=== PATIENT | male | born 1940 | race Caucasian/White ===

== ENCOUNTER 2017-08-13 13:57 | Emergency (ER) | payer SELFPAY ==
[~2017-08-13] VITALS: Ht 177.8 cm; Wt 108.0 kg
[2017-08-13 14:25] VITALS: Ht 177.8 cm; Wt 108.0 kg
--- NOTE | 2017-08-13 16:41 | ERD ---
ER Documentation Chief Complaint Chief Complaint LT GROIN PIAN X 20 DAYS HPI 76-year-old male, previously healthy, visiting from [place], presents to emergency department with his , complaining of 2 months with progressive left inguinal pain. The pain is described as sharp, intermittent, worsened by abduction of the left hip, rated 6/10. No history of trauma. No current treatment. Denies dysuria, abdominal pain, fever, chills, hematuria. History provided by patient. ROS A 12-point review of systems was performed and negative other than presented in the history of present illness. SYSTEMIC symptoms: no fever, chills, no night sweats, no weight loss EYE symptoms: No blurred vision, no eye discharge OTOLARYNGEAL symptoms: No hearing loss. No ear pain, no sore throat CARDIOVASCULAR symptoms: No chest pain or discomfort, no palpitations. PULMONARY symptoms: No dyspnea, no cough, no wheezing. GASTROINTESTINAL symptoms: No abdominal pain, no nausea, no vomiting, no diarrhea MUSCULOSKELETAL symptoms: Per HPI. NEUROLOGY symptoms: No confusion, no syncope, no numbness or tingling. SKIN: Per HPI Medications Home Meds Active Scripts Hydrocodone/Acetaminophen ([place] 5-325 Tablet) 1 Each Tablet, 1 TAB PO Q8 Y for PAIN for 3 Days, #10 TAB Prov:GRIFFIN NAYLOR MD 08/13/17 Clotrimazole* (Clotrimazole* AF) 1% - 30 Gm Cream.gm., 1 APPLIC TOP BID for 7 Days, TUB Prov:GRIFFIN NAYLOR MD 08/13/17 PMhx/Soc History of Surgery: Yes (HERNIA, KIDNEY STONE) Anesthesia Reaction: No Hx Neurological Disorder: No Hx Respiratory Disorders: No Hx Cardiac Disorders: Yes (HTN) Hx Psychiatric Problems: No Hx Miscellaneous Medical Probl: Yes (KIDNEY STONES) Hx Alcohol Use: No Hx Substance Use: No Hx Tobacco Use: Yes Smoking Status: Current some day smoker Physical Exam Vitals Vital Signs Date Time Temp Pulse Resp B/P Pulse Ox O2 Delivery O2 Flow Rate FiO2 08/13/17 14:25 98.2 92 18 146/98 97 Physical Exam Patient is in no acute distress, vital signs stable. Alert and fully oriented. EYES: PERRLA, EOMI, Sclera and conjunctiva appear normal. EARS: Canals clear, tympanic membranes WNL THROAT: Normal oropharynx. NECK: Supple, No lymphadenopathy. Full ROM without pain or tenderness. HEART: RRR, no rubs, murmurs, clicks or gallops. LUNGS: Clear to auscultation. ABDOMEN: Soft, non-tender without masses or hepatosplenomegaly. EXTREMITIES: No edema bilaterally. Tenderness to palpation of ileo-femoral band on the left side BACK: Full ROM, no deformity, normal back exam NEURO: Cranial nerves grossly intact, no motor or sensory deficit. Skin: Bilateral erythematous plaques of crural area Procedures/MDM 76-year-old male, visiting from [place] presents complaining of 2 months with progressive left inguinal pain. Vital signs stable, Physical exam in normal limits except for tenderness over the ilioinguinal ligament and bilateral erythematous, pruritic, malodorous plaques on the inguinal area Differential diagnosis include but not limited to: Inguinal hernia, musculoskeletal, arthrosis, low suspicion for fracture. Physical examination and clinical presentation consistent most likely with ilioinguinal strain. During the ED course the patient remained stable, no new complaints. Results and clinical impression discussed with patient who agrees with management. The patient is stable to be treated outpatient and will be discharged home with a Rx for tramadol and [place], some side effects of prescribed medications (headache, rash, nausea, vomiting, diarrhea, drowsiness, habituation, bleeding, hypertension, interactions with other medications) were reviewed. The patient was instructed to follow up with the primary care provider in the next 48h. If symptoms persist, worsen or new symptoms develop, then patient should return to the ED immediately. Instructions explained and given directly by me to the patient in Ukrainian with acknowledgment and demonstrated understanding. Disclaimer: Inadvertent spelling and grammatical errors are likely due to EHR/ dictation software use and do not reflect on the overall quality of patient care. Also, please note that the electronic time recorded on this note does not necessarily reflect the actual time of the patient encounter. Departure Diagnosis: Primary Impression: Ilio-inguinal strain Additional Impression: Tinea cruris Condition: Stable Additional Instructions: Call your primary care doctor TOMORROW for an appointment during the next 1-2 days. See the doctor sooner or return here if your condition worsens before your appointment time. Thank you very much for allowing us to participate in your care. Your health and safety is our top priority at [facility]. Have prescriptions filled and follow precisely the directions on the label. Follow-up with primary care provider during the next 4 days and bring all the information and medications prescribed. If illness has not improved in 2 days, then make an appointment with primary care provider. If the provider is unavailable, return to the Emergency Department immediately. GRIFFIN NAYLOR MD Aug 13, 2017 16:41
[2017-08-13] MEDS ORDERED: CLOT30CR24 TOP (16:43)
[2017-08-13] MEDS ORDERED: HYDR-906 PO (16:43)
== END 2017-08-13 16:55 | disposition home or self-care (01) ==
LOC: FTE 13:57
DX: S39.011A Strain of muscle, fascia and tendon of abdomen, initial encounter (principal); B35.6 Tinea cruris; I10 Essential (primary) hypertension; F17.210 Nicotine dependence, cigarettes, uncomplicated; X58.XXXA Exposure to other specified factors, initial encounter; Y92.9 Unspecified place or not applicable
CPT/HCPCS: 99283